=== PATIENT | female | born 1955 ===

== ENCOUNTER 2016-04-18 09:57 | Emergency (ER) | payer BC ==
[~2016-04-18] VITALS: Wt 90.6 kg
[2016-04-18] MEDS ORDERED: KETOROLAC 60 MG INJ IM STA (10:56)
--- NOTE | 2016-04-18 12:14 | RADRPT ---
PROCEDURE: XR femur CLINICAL INDICATION: 6 months lateral thigh pain, hx of old fracture TECHNIQUE: AP and lateral views of the left femur COMPARISON: None available FINDINGS: No fracture is identified. The osseous structures appear intact. Small soft tissue calcifications are seen distally. IMPRESSION: No evidence of acute osseous abnormality. RPTAT: VV .Adonay Lara MD, MD Date Time Electronically viewed and signed by .Adonay Lara MD, on 04/18/2016 12:14 .O/
--- NOTE | 2016-04-18 12:20 | RADRPT ---
PROCEDURE: US Lower extremity Venous. CLINICAL INDICATION: Left leg pain TECHNIQUE: Multiple sonographic images of the left lower extremity deep venous system was obtained utilizing grayscale, color-flow, compressive sonography and doppler imaging with augmentation. The images were reviewed on a PACS workstation. COMPARISON: None. 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 RPTAT: AA IMPRESSION: No sonographic evidence for deep venous thrombosis. .Sonu Vick MD, MD Date Time Electronically viewed and signed by .Sonu Vick MD, on 04/18/2016 12:20 .S/
[2016-04-18] MEDS ORDERED: NAPR-688 PO (12:55)
[2016-04-18 13:00] VITALS: BP 144/87; PULSE 87; RESP 20
--- NOTE | 2016-04-18 23:21 | ERD ---
DATE OF SERVICE: 04/18/2016 HISTORY OF PRESENT ILLNESS: This 60-year-old female presents with a 6-month history of left lateral thigh burning and numbness. She has had no trauma to the area. The patient says she gets a tingli ng sensation to that part of the thigh. Does not have lower back pain. Denies fevers and chills. She was fully ambulatory and fully functional in spite of the tingling sensation. REVIEW OF SYSTEMS: A 10-point review of systems negative except as in the HPI. PAST MEDICAL HISTORY: Hypertension. PAST SURGICAL HISTORY: Denies. FAMILY HISTORY: Noncontributory. SOCIAL HISTORY: Denies tobacco, alcohol, or other drugs. Lives with family. PHYSICAL EXAMINATION: VITAL SIGNS: Temperature 98.5, pulse 74, blood pressure 158/86, respirations 20, oxygen saturation 99% on room air. GENERAL: No acute distress. HEENT: Normocephalic, atraumatic. CARDIAC: Regular rate and rhythm without murmur. EXTREMITIES: The left lower extremity the patient states is affected with normal appearance. Does have obesity with moderate subcutaneous fat bilaterally, although the appearance and texture bilater ally are symmetrical. I don't feel any mass. I am unable to elicit any tenderness by palpation. S he does not have any pain with active or passive motion of the left hip joint or left knee. The pat ient indicates the pain is in the portion approximately 2/3 between the knee and the hip proximally. VASCULAR: Distal pulses intact, bilateral lower extremities. SKIN: No rashes or other lesions. DIAGNOSTIC DATA: 1. Femur x-ray interpretation by myself. I see no acute fracture or dislocation, foreign bodies, o r any other abnormality. Normal femur x-ray. 2. Duplex ultrasound of the left lower extremity interpretation: No DVT. EMERGENCY DEPARTMENT COURSE AND MEDICAL DECISION MAKING: The patient has a chronic history of pares thesias in one area of the leg. There are no apparent abnormalities on physical exam, x-ray, ultras ound. She was given a shot of Toradol in the emergency room. She stated that she is not currently having symptoms at this time. I am going to discharge her with primary care followup for further ev aluation and workup of this chronic pain. I am also discharging her with naproxen. I provided her copies of both imaging studies to take her primary care doctor and advised followup in 2 to 3 days. DIAGNOSIS: Chronic left thigh pain. DISPOSITION: Home in stable condition. Dictated By: TUAN VILLALTA Conf#: [id number] DID#: [id number]
== END 2016-04-18 13:03 | disposition home or self-care (01) ==
LOC: E/R 09:57
DX: M79.652 Pain in left thigh (principal); R40.2252 Coma scale, best verbal response, oriented, at arrival to emergency department; I10 Essential (primary) hypertension; R40.2142 Coma scale, eyes open, spontaneous, at arrival to emergency department; R40.2362 Coma scale, best motor response, obeys commands, at arrival to emergency department
CPT/HCPCS: 73550; 93971; 96372; J1885; Z7502

== ENCOUNTER 2016-11-21 10:56 | Emergency (ER) | payer BC ==
[~2016-11-21] VITALS: Ht 160 cm; Wt 90.5 kg
[~2016-11-21 10:56] MED LIST: NAPR-688 PO
[2016-11-21 10:59] VITALS: Ht 160 cm; Wt 90.5 kg
[2016-11-21] MEDS ORDERED: IBUP-1542 PO (12:00)
[2016-11-21] MEDS ORDERED: CYCL5TAB PO (12:00)
[2016-11-21 12:01] VITALS: BP 139/90; PULSE 68; RESP 14; TEMP 98.6
--- NOTE | 2016-11-21 14:56 | ERD ---
ER Documentation Chief Complaint Date/Time DATE: 11/21/16 TIME: 14:54 Chief Complaint back pain x 1 week no trauma; (MAICOL DOWNS PA-C) HPI 61-year-old female presents with intermittent right-sided low back pain that occurred a week ago after lifting a heavy object. Since pain is sharp, radiating from the left lower back to the left groin, it is only noted with movement, otherwise no pain noted at rest. She denies saddle anesthesia loss of bowel bladder function. She denies any fevers or chills. She denies any UTI symptoms. (MAICOL DOWNS PA-C) ROS All systems reviewed and are negative except as per history of present illness. (MAICOL DOWNS PA-C) Medications Home Meds Active Scripts Cyclobenzaprine Hcl* (Cyclobenzaprine Hcl*) 5 Mg Tablet, 5 MG PO Q8H Y for PAIN , #15 TAB Prov:MAICOL DOWNS PA-C 11/21/16 Ibuprofen* (Motrin*) 600 Mg Tab, 600 MG PO Q6, #30 TAB Prov:MAICOL DOWNS PA-C 11/21/16 Discontinued Scripts Naproxen* (Naproxen*) 500 Mg Tablet, 500 MG PO BID Y for PAIN, #10 TAB Prov:TUAN BOOTH DO 04/18/16 Allergies Allergies: Coded Allergies: No Known Allergy (Unverified , 11/21/16) PMhx/Soc History of Surgery: Yes (Gall Bladder) Anesthesia Reaction: No Hx Neurological Disorder: No Hx Respiratory Disorders: No Hx Cardiac Disorders: No Hx Psychiatric Problems: No Hx Miscellaneous Medical Probl: No Hx Alcohol Use: No Hx Substance Use: No Hx Tobacco Use: No Smoking Status: Never smoker (MAICOL DOWNS PA-C) Physical Exam Vitals Vital Signs Date Time Temp Pulse Resp B/P Pulse Ox O2 Delivery O2 Flow Rate FiO2 11/21/16 12:01 98.6 68 14 139/90 97 11/21/16 11:16 98.6 76 18 152/87 98 11/21/16 10:59 98.6 68 18 156/81 97 (MAYITO THOMSON MD) Physical Exam General: Well-developed, well-nourished. The patient appears in no acute distress. HEENT: Head is normocephalic, atraumatic. No scleral icterus. Neck: Supple. Nontender. Lungs: Clear to auscultation. Normal air movement. Heart: Regular rate and rhythm. S1 and S2 are normal. No murmurs, gallops, or rubs. Abdomen: Soft, nontender, nondistended. Bowel sounds are normoactive. Back: No midline tenderness, no rash, strength lower extremities 5 out of 5 bilaterally. Reproducible back pain with patient rotating back from left to right. Extremities: No clubbing or cyanosis. Normal pulses. Moving extremities x 4. No weakness. Neurologic: Alert and oriented 3. No focal deficits. Skin: Normal turgor. No rash or lesions. (MAICOL DOWNS PA-C) Procedures/MDM Medical decision makin-year-old female presents with low back pain for the past week after lifting heavy object, this appears to be a lumbar strain. Differentials also considering the thoracic strain, lumbar strain, sacroiliitis , degenerative disc disease, fracture, subluxation, cauda equina, compression syndrome and among others. She is neurovascularly intact, your pain does not occur, she is actually moving, consistent with muscular pain. She will be given NSAIDs as well as a muscle relaxant to be taken as needed for pain. The case was reviewed and discussed with Dr. Thomson who agrees with the plan of care including labs, treatment, and advanced imaging as appropriate. Patient's blood pressure was elevated (>120/80) but appears stable without evidence of hypertension emergency or urgency. The patient was counseled about the risks of hypertension and urged to pursue outpatient monitoring and therapy within a week with their primary care physician. (MAICOL DOWNS PA-C) I personally examined this patient and discussed her symptoms. The patient reports 1 week of right-sided low back pain after lifting a heavy box. She has no neurological symptoms or deficits. She has no urinary symptoms or deficits. She has no midline tenderness. There are no features that are concerning for aortic dissection or aneurysm, and the patient has no pulsatile mass on abdominal exam. She has equal pulses in bilateral lower extremities. Symptoms are consistent with a mechanical etiology of the patient's pain. She will be discharged with Flexeril and Motrin, and advised on return precautions. (MAYITO THOMSON MD) Departure Diagnosis: Primary Impression: Back pain Additional Impression: Injury of back Condition: Good Patient Instructions: Back Sprain/Strain MAICOL DOWNS PA-C Nov 21, 2016 14:56 MAYITO THOMSON MD Nov 21, 2016 19:02
== END 2016-11-21 12:10 | disposition home or self-care (01) ==
LOC: E/R 10:56
DX: S39.92XA Unspecified injury of lower back, initial encounter (principal); X50.0XXA Overexertion from strenuous movement or load, initial encounter; Y92.9 Unspecified place or not applicable
CPT/HCPCS: Z7502; Z7610; 99283

== ENCOUNTER 2017-11-23 11:48 | Emergency (ER) | END 2017-11-23 14:47 | disposition home or self-care (01) ==